=== PATIENT | female | born 2000 | race Two or more races ===

== ENCOUNTER 2020-01-25 14:56 | Emergency (ER) | payer MEDICAID, OTHER ==
[~2020-01-25] VITALS: Ht 149.9 cm; Wt 52.2 kg
[~2020-01-25 14:56] MED LIST: DICYCLOMINE HCL10 MG ORAL; OMEPRAZOLE20 M3 ORAL; TYLENOL EXTRA500 MG ORAL; ZOFRAN4 M1 ORAL
--- NOTE | 2020-01-25 15:12 | NUR ---
ED Nurse Note: Pt ambulated to ED d/t headache and runny nose going on for a few days. VSS, on RA, afebrile on triage. Placed at the tent.
[2020-01-25 15:20] VITALS: BP 100/62
--- NOTE | 2020-01-25 15:42 | Emergency Room Report ---
History of Present Illness General Chief Complaint: Headache Source: Patient Present Illness HPI 19-year-old female with no past medical history presents with fatigue, mild headaches, sore throat, and shortness of breath for the past 3 days. She denies any cough, fever, chest pain, vomiting, diarrhea. She denies any history of DVT or PE, leg pain or swelling, hormone use, hemoptysis, recent travel or surgery. She denies any known COVID exposure. Allergies: Coded Allergies: No Known Allergies (Unverified , 01/19/20) COVID-19 Screening Contact w/high risk pt: No Recent Travel to affected area: No Experienced COVID-19 symptoms?: Yes COVID-19 Testing performed PHYSICIAN EXECUTIVE: No Patient History Past Medical History: see triage record Last Menstrual Period: 01/23/20 Now: No Reviewed Nursing Documentation: PMH: Agreed; PSxH: Agreed Nursing Documentation-PMH Past Medical History: No Stated History Review of Systems All Other Systems: negative except mentioned in HPI Physical Exam Vital Signs Date Time Temp Pulse Resp B/P (MAP) Pulse Ox O2 Delivery O2 Flow Rate FiO2 01/25/20 15:10 98.2 77 18 100/62 (75) 95 Room Air Sp02 EP Interpretation: reviewed, normal General Appearance: normal inspection, well appearing, no apparent distress, alert, GCS 15, non-toxic ENT: EOM grossly intact, normal pharynx, normal voice, TMs + canals normal, uvula midline Neck: normal inspection, full range of motion, supple, thyroid normal, no meningismus, no bony tend Respiratory: chest non-tender, lungs clear, normal breath sounds, no respiratory distress Cardiovascular #1: normal peripheral pulses, regular rate, rhythm Musculoskeletal: normal inspection, normal range of motion, gait/station normal Neurologic: alert, motor strength/tone normal, supercalender operator III-XII nml as tested, oriented x3, speech normal Psychiatric: judgement/insight normal, mood/affect normal Skin: no rash, normal color, warm/dry Lymphatic: no adenopathy Medical Decision Making PA Attestation Dr. Johnson is my supervising physician whom patient management and care has been discussed with. Diagnostic Impression: Primary Impression: Viral syndrome ER Course Pt. presents to the ED c/o mild headaches, sore throat, shortness of breath, and fatigue. Denies any fever, cough, chest pain, vomiting, diarrhea or any COVID exposure. No PE risk factors. Ddx considered but are not limited to COVID-19, or other viral syndrome, pneumonia, PE, pneumothorax, migraine, strep pharyngitis, asthma. Vital signs: are WNL, pt. is afebrile H&PE are most consistent with viral syndrome, possibly COVID-19. ORDERS: none required at this time, the diagnosis is clinical ED INTERVENTIONS: None required at this time. DISCHARGE: At this time pt. is stable for d/c to home. Well-appearing, nontoxic , no hypoxia. Speaking in full sentences, no respiratory distress. Patient redirected to [facility] for COVID testing. Advised to self isolate at home for 2 weeks or as long as she is having symptoms. Will provide printed patient care instructions, and any necessary prescriptions. Advised to follow up outpatient in 1-2 days. Care plan and follow up instructions have been discussed with the patient prior to discharge. Last Vital Signs Date Time Temp Pulse Resp B/P (MAP) Pulse Ox O2 Delivery O2 Flow Rate FiO2 01/25/20 15:20 98.2 18 100/62 95 Room Air 01/25/20 15:10 77 Disposition: HOME, SELF-CARE Condition: Stable Scripts Benzocaine/Menthol (CHLORASEPTIC MAX LOZENGE) 1 Each Lozenge 1 EACH MM Q2H, #20 LOZENGE Prov: Tawana Ventura N. P.ALaury 01/25/20 Acetaminophen* (TYLENOL EXTRA STRENGTH*) 500 Mg Tablet 500 MG ORAL Q6H PRN for Mild Pain/Temp > 100.5, #30 TAB 0 Refills Prov: Tawana Ventura N. P.Niki 01/25/20 Referrals: NON PHYSICIAN (PCP) Tawana Ventura PMackenzie Jan 25, 2020 15:42
[2020-01-25] MEDS ORDERED: CHLORASEPTIC M1 EACH MM (15:44)
[2020-01-25] MEDS ORDERED: TYLENOL EXTRA500 MG ORAL (15:44)
[2020-01-25 15:48] VITALS: BP 110/66
--- NOTE | 2020-01-25 15:48 | NUR ---
ER DISCHARGE NOTE: Pt is cleared to be discharged per ERPA, pt is aox4, on room air, with stable vital signs. pt was given dc and prescription instructions, pt was able to verbalize understanding, pt id band removed. pt is able to ambulate with steady gait. pt took all belongings.
== END 2020-01-25 15:48 | disposition home or self-care (01) ==
LOC: EDBD 14:56 → EMR 15:15
DX: B34.9 Viral infection, unspecified (principal)
CPT/HCPCS: 99282